=== PATIENT | male | born 1990 | race African-American/Black ===

== ENCOUNTER 2017-04-26 19:10 | Emergency (ER) | payer MEDICAID, OTHER | END 2017-04-26 19:55 | disposition left against medical advice (07) | LOC: ER 19:10 | DX: Z53.21 Procedure and treatment not carried out due to patient leaving prior to being seen by health care provider (principal) ==

== ENCOUNTER 2018-01-07 17:47 | Emergency (ER) | payer MEDICAID, OTHER ==
[~2018-01-07] VITALS: Ht 175.3 cm; Wt 81.0 kg
[2018-01-07] MEDS ORDERED: SODIUM CHLORIDE 0.9% 1,000 ML IV ONE (19:31)
[2018-01-07] MEDS ORDERED: KETOROLAC 30MG/ML VIAL IV STA (19:31)
[2018-01-07] MEDS ORDERED: ONDANSETRON HCL 4MG/2ML INJ IV STA (19:31)
[2018-01-07] MEDS ORDERED: FAMOTIDINE 20MG/2ML VIAL IV STA (19:31)
[2018-01-07] MEDS ORDERED: MAGNESIUM/ALUMINUM HYDROXIDE/SIMETHICONE 30ML UDC PO STA (19:31)
[2018-01-07 20:21] LABS: BASOPHILS % 0.5 % (0.0-2.0); EOSINOPHILS % 1.3 % (0.0-5.0); HEMOGLOBIN. 12.8 g/dL (14.0-18.0); LYMPHOCYTES % 18.5 % (20.0-50.0); MEAN CORPUSCULAR HEMOGLOBIN 28.2 pg (28.0-32.0); MEAN CORPUSCULAR VOLUME 85.8 fL (80.0-94.0); MEAN PLATELET VOLUME 7.6 fl (7.4-10.4); MONOCYTES % 7.7 % (2.0-8.0); PLATELET 306 x1000/uL (130-400); RED BLOOD CELL COUNT 4.55 mill/uL (4.7-6.1); RED CELL DISTRIBUTION WIDTH 13.5 % (11.6-14.6)
[2018-01-07 20:24] LABS: CHLORIDE 104 mEq/L (98-107)
[2018-01-07 22:20] VITALS: BP 109/88
== END 2018-01-07 22:45 | disposition home or self-care (01) ==
LOC: ER 17:47
DX: K80.50 Calculus of bile duct without cholangitis or cholecystitis without obstruction (principal); D72.829 Elevated white blood cell count, unspecified; D64.9 Anemia, unspecified; F12.10 Cannabis abuse, uncomplicated; Z87.19 Personal history of other diseases of the digestive system; Z98.890 Other specified postprocedural states
CPT/HCPCS: 36415; 76705; 80053; 83690; 85025; 85610; 96374; 96375; 99285; J1885; J2405; J3490; J7030

== ENCOUNTER 2019-02-19 09:16 | Emergency (ER) | payer MEDICAID ==
[~2019-02-19] VITALS: Ht 175.3 cm; Wt 66.0 kg
[2019-02-19] MEDS ORDERED: ACETAMINOPHEN 325MG TABLET PO ONE (09:45)
[2019-02-19 11:37] VITALS: BP 141/91
== END 2019-02-19 11:27 | disposition home or self-care (01) ==
LOC: ER 09:23
DX: S02.2XXA Fracture of nasal bones, initial encounter for closed fracture (principal); Y08.89XA Assault by other specified means, initial encounter; Y93.89 Activity, other specified; Y92.89 Other specified places as the place of occurrence of the external cause; Y99.8 Other external cause status; F12.10 Cannabis abuse, uncomplicated; Z87.19 Personal history of other diseases of the digestive system; Z98.890 Other specified postprocedural states
CPT/HCPCS: 70160; 99283